=== PATIENT | female | born 1985 | race Caucasian/White ===

== ENCOUNTER 2016-12-24 21:18 | Emergency (ER) | payer OTHER ==
[2017-05-13] MEDS ORDERED: AMITRIPTYLINE H10 MG PO (06:38)
[2017-05-13] MEDS ORDERED: SUBOXONE 8 MG-1 EACH SL (06:39)
[2017-05-13] MEDS ORDERED: NEURONTIN 300300 MG PO (06:40)
== END 2016-12-24 22:20 | disposition left against medical advice (07) ==
LOC: ER1 21:18
DX: Z53.21 Procedure and treatment not carried out due to patient leaving prior to being seen by health care provider (principal)

== ENCOUNTER 2017-01-01 21:06 | Emergency (ER) | payer OTHER ==
[2017-05-13] MEDS ORDERED: AMITRIPTYLINE H10 MG PO (06:38)
[2017-05-13] MEDS ORDERED: SUBOXONE 8 MG-1 EACH SL (06:39)
[2017-05-13] MEDS ORDERED: NEURONTIN 300300 MG PO (06:40)
== END 2017-01-01 23:35 | disposition left against medical advice (07) ==
LOC: ER1 21:06
DX: Z53.21 Procedure and treatment not carried out due to patient leaving prior to being seen by health care provider (principal)

== ENCOUNTER 2017-02-14 01:15 | Emergency (ER) | payer MEDICARE ==
[2017-05-13] MEDS ORDERED: AMITRIPTYLINE H10 MG PO (06:38)
[2017-05-13] MEDS ORDERED: SUBOXONE 8 MG-1 EACH SL (06:39)
[2017-05-13] MEDS ORDERED: NEURONTIN 300300 MG PO (06:40)
== END 2017-02-14 02:45 | disposition home or self-care (01) ==
LOC: ER1 01:15
DX: S06.9X9A Unspecified intracranial injury with loss of consciousness of unspecified duration, initial encounter (principal); F32.9 Major depressive disorder, single episode, unspecified; F17.210 Nicotine dependence, cigarettes, uncomplicated; Z79.899 Other long term (current) drug therapy; W18.39XA Other fall on same level, initial encounter
CPT/HCPCS: 70450; 99283

== ENCOUNTER 2021-01-03 21:43 | Emergency (ER) | payer OTHER ==
[~2021-01-03 21:43] MED LIST: AMITRIPTYLINE H10 MG PO; NAPROSYN500 MG PO; NEURONTIN 300300 MG PO; ONDANSETRON ODT4 MG PO; SUBOXONE 8 MG-1 EACH SL; VENTOLIN HFA 66.7 GM INH
== END 2021-01-04 03:08 | disposition left against medical advice (07) ==
LOC: ER1 21:43
DX: Z53.21 Procedure and treatment not carried out due to patient leaving prior to being seen by health care provider (principal)
CPT/HCPCS: 93005

== ENCOUNTER 2021-02-03 15:57 | Emergency (ER) | payer OTHER ==
[2021-02-03 17:44] LABS: HEMOGLOBIN 12.7 gm/dl (12.3-15.3); RED BLOOD COUNT 4.13 M/UL (4.00-5.10); WHITE BLOOD COUNT 14.5 K/UL (4.5-11.0)
[2021-02-03 18:22] LABS: BUN/CREATININE RATIO 9 (0-10)
== END 2021-02-03 16:55 | disposition expired ==
LOC: ER1 15:57 → EDBD 15:57 → ER1 15:57
PROVIDERS: Family Medicine
DX: I46.9 Cardiac arrest, cause unspecified (principal); Z20.822 Contact with and (suspected) exposure to COVID-19
CPT/HCPCS: 0240U; 36600; 71045; 80053; 80307; 81001; 82550; 82553; 82803; 83874; 84484; 85025; 92950; 94002; 99285; J0171; J2310; J7030